=== PATIENT | male | born 1980 | race Caucasian/White ===

== ENCOUNTER 2023-04-10 13:30 | Outpatient (RCR) | payer OTHER, SELFPAY ==
--- NOTE | 2023-03-04 14:58 | OTOPEVAL1 ---
Assessment and note entered by Ahsan Kate, GERARD/Marianela, CHT Evaluation Information Assessment Status Evaluation Diagnosis Left radial nerve palsy Onset ~1 month ago Subjective Information Patient slept on his arm and woke up with wrist drop. This occurred about a month ago. He wears a wrist support at work. 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 He is right handed. Reports intermittent paresthesias. Reported Pain Level Pain Score 0: Self Report Additional Pain Score Comments No pain today. Reports intermittent left elbow or wrist pains, 1-10. Assessment OT Clinical Summary Patient referred to OT with dx of left radial nerve palsy. He presents with distal weakness of the wrist and fingers. Triceps and supinator strength is 5/5. Functionally having difficulties with any sort of hand use - donning deodorant, changing his son's diaper, lifting/carrying, etc. Today a custom wrist and finger extension support orthotic was fabricated for him to wear during the day to increase functional hand use. He was instructed in ROM of the joints also. Continued follow up indicated for any splinting needs/ adjustments and progression of HEP as we monitor nerve return. Plan of Care Interventions Therapeutic Exercise,Neuro Re-education, Therapeutic Activities,Electrical Stimulation, Check Out for Orthotic/Pr These treatments will address the objective and functional deficits as defined above. The patient will be advanced safely and appropriately in order for the patient to progress towards his/her prior level of function. Additional exercises will be introduced and as well as a comprehensive home exercise program upon discharge, if needed, ?to ensure carryover of functional gains achieved in the clinic. This treatment plan has been reviewed and agreement upon by the patient.
--- NOTE | 2023-04-10 14:12 | OTOPDC ---
Assessment and note entered by GERARD Gupta/Marianela, T Discharge Summary 04/10/23 Diagnosis Left radial nerve palsy Subjective Information About 2 months ago patient slept on his left arm and woke up with wrist drop. He has attended 3 therapy sessions focused on improving strength. At the start of care he presented with 0/5 muscle strength with wrist extension and finger extension. Today the wrist extensors and extensor digitorum are now measuring 2+/5. In a gravity eliminated plane he is able to extend the wrist past neutral, but against gravity he is unable to achieve neutral, lagging about -15 degrees. [employer] strength continues to be impaired at 10 lbs. Assessment OT Clinical Summary Patient referred to OT with dx of left radial nerve palsy. He continues to present with distal weakness of the wrist and fingers. Triceps and supinator strength is 5/5. Wrist and finger extensors improved from 0/5 to 2+/5. His HEP was progressed to strengthening and modified strengthening of the wrist/hand. He reports he feels comfortable taking it from here and declines need for further follow up. Discharging with patient independent with HEP. Plan of Care OT Services Indicated No
== END 2023-04-10 14:58 | disposition home or self-care (01) ==
LOC: ANHOT 13:30
PROVIDERS: PCP Physician Assistant; Visit Provider Physician Assistant
DX: G56.32 Lesion of radial nerve, left upper limb (principal)
CPT/HCPCS: 97110; L3806